=== PATIENT | male | born 1965 | race African-American/Black ===

== ENCOUNTER 2021-07-23 03:43 | Emergency (ER) | payer OTHER, MEDICAID | END 2021-07-23 08:51 | disposition short-term general hospital (02) | LOC: ED 03:43 → EDBD 03:44 → ED 08:51 | DX: S02.2XXA Fracture of nasal bones, initial encounter for closed fracture (principal); S01.83XA Puncture wound without foreign body of other part of head, initial encounter; Z20.822 Contact with and (suspected) exposure to COVID-19; W34.00XA Accidental discharge from unspecified firearms or gun, initial encounter | CPT/HCPCS: 36415; 70450; 72125; 80053; 85025; 90471; 90714; 96374; 96375; 99285-25; C9803; J0295; J1170; J2270; J7030; U0003 ==

== ENCOUNTER 2023-01-01 19:05 | Emergency (ER) | payer OTHER | END 2023-01-01 21:19 | disposition home or self-care (01) | LOC: ED 19:05 | DX: R18.8 Other ascites (principal) ==